=== PATIENT | male | born 1960 | race Caucasian/White ===

== ENCOUNTER 2018-02-23 05:22 | Emergency (ER) | payer BC ==
--- OUTSIDE RECORDS SUMMARY | 2018-02-23 05:24 | XMS REPORT | Clinical Summary ---
:1960 Author Organization [facility] Address [address] [place] [address] Care Team Providers Name Role Phone Bhavin Araiza MD Primary Care Provider Allergies No Known Allergies Current Medications Prescription Sig. Disp. Refills Start Date End Date Status benzonatate (TESSALON) TK ONE C PO TID PRF 0 03/28/2016 Active 100 MG capsule COUGH cefdinir (OMNICEF) 300 TK ONE C PO Q 12 H 0 03/28/2016 Active MG capsule DUEXIS 800-26.6 mg Take 1 tablet by 0 03/19/2016 Active tablet mouth 3 (three) times a day. NOREL AD 4-10-325 mg TK 1 T PO Q 6 H PRF 0 03/28/2016 Active tablet NASAL CONGESTION armodafinil 150 mg Take 150 mg by mouth. Active tablet azelastine-fluticasone into each nostril. Active (DYMISTA) 137-50 mcg/spray spray,non-aerosol esomeprazole (NexIUM) Take 40 mg by mouth. Active 40 MG capsule traMADol (ULTRAM) 50 mg Take 50 mg by mouth. 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 07/23/2015 Family History Medical History Relation Name Comments Cancer Mother JAW BONE Relation Name Status Comments Mother Social History Tobacco Use Types Packs/Day Years Used Date Former Smoker Quit: 1981 Alcohol Use Drinks/Week oz/Week Comments Yes 1 DRINK / MONTH Sex Assigned at Date Recorded Not on file Last Filed Vital Signs Not on file Plan of Treatment Health Maintenance Due Date Last Done Comments COLON CANCER SCREENING 2011 SHINGRIX VACCINE (#1) 2011 GASTROSCOPY (EGD) 07/28/2017 07/28/2016 INFLUENZA VACCINE 11/30/2017 Results Not on fileafter 02/22/2017 Insurance Payer Benefit Plan / Group Subscriber ID Type Phone Address BCBS BCBS CHOICE PPO/FEDERAL EMPL PPO xxxxxxxxxxxx PPO [phone] [place] [id number]
[2018-02-23] MEDS ORDERED: MAGNE/ALUM HYDROXD 30 ML UCUP ONE (05:47)
[2018-02-23] MEDS ORDERED: LIDOCAINE VISCOUS 2% SOLN 15 ML UDC ONE (05:48)
[2018-02-23] MEDS ORDERED: NITROGLYCERIN 0.4 MG/TAB SL ONE (05:48)
[2018-02-23 05:50] LABS: Absolute Monocytes 0.5 K/uL (0.1-1.3); Absolute Neutrophil 2.6 K/uL (1.8-8.0); Basophils % 0.6 % (0-1.3); Eosinophils % 7.5 % (0-4.4); Hematocrit 38.1 % (39.6-49.0); Lymphocytes % 35.3 % (15.3-44.8); MCH 30.5 pg (27.0-35.0); MCV 90.9 fL (80-100); Monocytes % 9.6 % (3.3-12.3); RBC Red Blood Cell Count 4.19 M/uL (4.33-5.43)
[2018-02-23 06:05] LABS: Protime INR 0.87
[2018-02-23 06:09] LABS: ALT/SGPT 28 U/L (12-78); AST/SGOT 20 U/L (15-37); Albumin 3.4 g/dL (3.4-5.0); Alkaline Phosphatase 65 U/L (45-117); BUN Blood Urea Nitrogen 18 mg/dL (7-18); Bicarbonate 27 mmol/L (21-32); Bilirubin Total 0.3 mg/dL (0.2-1.0); Glucose Level 84 mg/dL (74-106); Magnesium 2.3 mg/dL (1.8-2.4); NT PRO-BNP 22 pg/mL (<125); Potassium 4.1 mmol/L (3.5-5.1); Protein, Total 6.6 g/dL (6.4-8.2); Sodium Level 143 mmol/L (136-145); Troponin (Emerg Dept Use Only) < 0.02 ng/mL (0.0-0.045)
--- NOTE | 2018-02-23 08:48 | RAD REPORT ---
EXAM DESCRIPTION: RAD - Chest Single View - 02/23/2018 6:11 am CLINICAL HISTORY: CHEST PAIN Chest pain. COMPARISON: Chest Single View dated 10/26/2016; CHEST SINGLE VIEW dated 07/27/2013; ABDOMEN ACUTE SERI ES dated 03/09/2001 FINDINGS: Portable technique limits examination quality. The lungs are grossly clear. The heart is normal in size. No displaced fractures. IMPRESSION: No acute intrathoracic process suspected.
--- NOTE | 2018-02-23 09:08 | EDPHYS ---
Physician Documentation [facility] Name: Jose Antonio Olivarez Age: 57 yrs Sex: Male : 1960 Arrival Date: 02/23/2018 Time: 05:23 Bed 19 Private MD: ED Physician Rafi Jones HPI: 02/23 05:44 This 57 yrs old Male presents to ER via Ambulatory with complaints of Chest ps1 Pain - Discomfort, High Blood Pressure. 05:44 Onset was 4am upon awakening. Burning sensation. Had BP 160's and got worried. ps1 Discomfort is localized substernal and into throat. Pain rated as moderate. [place] like indigestion. No remitting factors. Pt of [place]. Last nuc stress a year ago. . Historical: - Allergies: 05:34 No Known Allergies; aa1 - Home Meds: 05:34 Nexium Oral [Active]; aa1 07:06 Clonidine 0.2mg twice a day [Active]; pantoprazole Oral [Active]; tw2 - PMHx: 05:34 GERD; Hypertension; Dao's Esophagitis; aa1 - PSHx: 05:34 None; aa1 - Immunization history:: Flu vaccine is not up to date. - Social history:: Smoking status: Patient/guardian denies using tobacco. - Ebola Screening: : No symptoms or risks identified at this time. ROS: 05:44 Constitutional: Negative for fever, chills, and weight loss, Eyes: Negative for injury, ps1 pain, redness, and discharge, Respiratory: Negative for shortness of breath, cough, wheezing, and pleuritic chest pain, Abdomen/GI: Negative for abdominal pain, nausea, vomiting, diarrhea, and constipation, Back: Negative for injury and pain, MS/Extremity: Negative for injury and deformity, Skin: Negative for injury, rash, and discoloration, Neuro: Negative for headache, weakness, numbness, tingling, and seizure, Psych: Negative for depression, anxiety, suicide ideation, homicidal ideation, and hallucinations. 05:44 Cardiovascular: Positive for chest pain, of the chest. Exam: 05:44 Constitutional: This is a well developed, well nourished patient who is awake, alert, ps1 and in no acute distress. Head/Face: Normocephalic, atraumatic. Eyes: Pupils equal round and reactive to light, extra-ocular motions intact. Lids and lashes normal. Conjunctiva and sclera are non-icteric and not injected. Chest/axilla: Normal chest wall appearance and motion. Nontender with no deformity. No lesions are appreciated. Respiratory: Lungs have equal breath sounds bilaterally, clear to auscultation and percussion. No rales, rhonchi or wheezes noted. No increased work of breathing, no retractions or nasal flaring. Abdomen/GI: Soft, non-tender, with normal bowel sounds. No distension or tympany. No guarding or rebound. No evidence of tenderness throughout. Skin: Warm, dry with normal turgor. Normal color with no rashes, no lesions, and no evidence of cellulitis. MS/ Extremity: Pulses equal, no cyanosis. Neurovascular intact. Full, normal range of motion. Neuro: Awake and alert, GCS 15, oriented to person, place, time, and situation. Cranial nerves II-XII grossly intact. Sensory grossly intact. Psych: Awake, alert, with orientation to person, place and time. Behavior, mood, and affect are within normal limits. 05:44 Cardiovascular: Rate: normal, Rhythm: regular, Pulses: no pulse deficits are appreciated. Vital Signs: 05:34 BP 163 / 108; Pulse 67; Resp 18; Temp 98.0; Pulse Ox 98% on R/A; Weight 79.38 kg; aa1 Height 5 ft. 7 in. (170.18 cm); Pain 6/10; 06:05 BP 131 / 91; Pulse 60; Resp 13; Pulse Ox 97% ; tl1 06:35 BP 144 / 103; Pulse 64; Resp 16; Pulse Ox 99% ; tl1 07:35 BP 149 / 94; Pulse 57; Resp 13; Pulse Ox 97% on R/A; tw2 08:59 BP 146 / 96; Pulse 53; Resp 17; Pulse Ox 99% on R/A; tw2 09:25 BP 156 / 94; Pulse 54; Resp 18; Temp 97.9; Pulse Ox 98% on R/A; ph 05:34 Body Mass Index 27.41 (79.38 kg, 170.18 cm) aa1 MDM: 05:47 Patient medically screened. ps1 09:06 Data reviewed: vital signs, nurses notes. Data interpreted: Pulse oximetry: on room air kb is 99 %. Interpretation: normal. Counseling: I had a detailed discussion with the patient and/or guardian regarding: the historical points, exam findings, and any diagnostic results supporting the discharge/admit diagnosis, lab results, radiology results, the need for outpatient follow up, a family practitioner, to return to the emergency department if symptoms worsen or persist or if there are any questions or concerns that arise at home. 02/23 05:28 Order name: CBC with Diff; Complete Time: 05:57 ps1 02/23 05:28 Order name: Magnesium; Complete Time: 06:12 ps1 02/23 05:28 Order name: NT PRO-BNP; Complete Time: 06:12 ps1 02/23 05:28 Order name: PT-INR; Complete Time: 06:12 02/23 05:28 Order name: Troponin (emerg Dept Use Only); Complete Time: 06:12 ps1 02/23 05:28 Order name: CMP; Complete Time: 06:12 ps1 02/23 05:28 Order name: XRAY Chest (1 view); Complete Time: 08:54 ps1 02/23 05:28 Order name: EKG; Complete Time: 05:29 ps1 02/23 05:28 Order name: Cardiac monitoring; Complete Time: 05:40 ps1 02/23 05:28 Order name: EKG - Nurse/Tech; Complete Time: 05:40 ps1 02/23 07:45 Order name: Troponin (emerg Dept Use Only); Complete Time: 09:05 tw2 02/23 07:45 Order name: EKG; Complete Time: 07:46 tw2 02/23 05:28 Order name: IV Saline Lock; Complete Time: 05:40 ps1 02/23 05:28 Order name: Labs collected and sent; Complete Time: 05:40 ps1 02/23 05:28 Order name: O2 Per Protocol; Complete Time: 05:40 ps1 02/23 05:28 Order name: O2 Sat Monitoring; Complete Time: 05: ps1 02/23 07:45 Order name: EKG - Nurse/Tech; Complete Time: 07:46 tw2 EC:35 Rate is 60 beats/min. Rhythm is regular. QRS [place] is Normal. [place] interval is normal. QRS ps1 interval is normal. QT interval is normal. No Q waves. T waves are Normal. No ST changes noted. Clinical impression: Normal ECG. Interpreted by me. Administered Medications: 05:44 Drug: GI Cocktail without - (Maalox Suspension 30 ml, Lidocaine Liquid 2 % 15 tl1 ml) Route: PO; 07:45 Follow up: Response: No adverse reaction tw2 05:44 Drug: Nitroglycerin 0.4 mg Route: Sublingual; tl1 07:45 Follow up: Response: No adverse reaction tw2 Disposition: 02/23/18 09:07 Discharged to Home. Impression: Chest pain, unspecified. - Condition is Stable. - Discharge Instructions: Nonspecific Chest Pain, [id number]. - Medication Reconciliation Form, Thank You Letter, Antibiotic Education, Prescription Opioid Use form. - Follow up: Emergency Department; When: As needed; Reason: Worsening of condition. Follow up: Private Physician; When: 2 - 3 days; Reason: Recheck today's complaints, Continuance of care, Re-evaluation by your physician. Addendum: 02/28/2018 09:48 Co-signature as Attending Physician, Rafi Jones MD available for consultation at p s1 all times . Signatures: Dispatcher [employer] EDMS Omaira Warren, CATCHER HELPER-C CATCHER HELPER-Ckb Mariella Amos RN RN aa1 Haily Lemus, RN RN tl1 Tania Strickland RN RN ph Sindy Patel, RN RN tw2 Rafi Jones MD MD ps1 Corrections: (The following items were deleted from the chart) 02/23 09:26 09:07 02/23/2018 09:07 Discharged to Home. Impression: Chest pain, unspecified. ph Condition is Stable. Forms are Medication Reconciliation Form, Thank You Letter, Antibiotic Education, Prescription Opioid Use. Follow up: Emergency Department; When: As needed; Reason: Worsening of condition. Follow up: Private Physician; When: 2 - 3 days; Reason: Recheck today's complaints, Continuance of care, Re-evaluation by your physician. kb
--- NOTE | 2018-02-23 09:08 | ER ---
Nurse's Notes [facility] Name: Jose Antonio Olivarez Age: 57 yrs Sex: Male : 1960 Arrival Date: 02/23/2018 Time: 05:23 Bed 19 Private MD: Diagnosis: Chest pain, unspecified Presentation: 02/23 05:32 Presenting complaint: Patient states: he woke up at 0430 this am with indigestion and aa1 burning in his chest that radiates to his throat. Reports taking Nexium and Rolaids with no relief. Transition of care: patient was not received from another setting of care. Onset of symptoms was February 23, 2018 at 04:30. Risk Assessment: Do you want to hurt yourself or someone else? Patient reports no desire to harm self or others. Initial Sepsis Screen: Does the patient meet any 2 criteria? No. Patient's initial sepsis screen is negative. Does the patient have a suspected source of infection? No. Patient's initial sepsis screen is negative. Care prior to arrival: None. 05:32 Method Of Arrival: Ambulatory aa1 05:32 Acuity: VAUGHN 3 aa1 Historical: - Allergies: 05:34 No Known Allergies; aa1 - Home Meds: 05:34 Nexium Oral [Active]; aa1 07:06 Clonidine 0.2mg twice a day [Active]; pantoprazole Oral [Active]; tw2 - PMHx: 05:34 GERD; Hypertension; Dao's Esophagitis; aa1 - PSHx: 05:34 None; aa1 - Immunization history:: Flu vaccine is not up to date. - Social history:: Smoking status: Patient/guardian denies using tobacco. - Ebola Screening: : No symptoms or risks identified at this time. Screenin:37 Abuse screen: Denies threats or abuse. Denies injuries from another. Nutritional aa1 screening: No deficits noted. Tuberculosis screening: No symptoms or risk factors identified. Fall Risk None identified. Assessment: 05:45 General: Appears in no apparent distress. Behavior is calm, cooperative, appropriate tl1 for age. Pain: Complains of pain in mid-sternal area Pain radiates to neck Pain began gradually. Neuro: Level of Consciousness is awake, alert, obeys commands, Oriented to person, place, time, situation. Cardiovascular: Reports chest pain, Capillary refill < 3 seconds Patient's skin is warm and dry. Rhythm is regular Chest pain quality is burning. Respiratory: Airway is patent Trachea midline Respiratory effort is even, unlabored, Respiratory pattern is regular, symmetrical, Breath sounds are clear bilaterally. GI: Bowel sounds present X 4 quads. Abd is soft and non tender X 4 quads. Patient currently denies abdominal pain. : No deficits noted. 06:36 Reassessment: Patient and/or family updated on plan of care and expected duration. Pain tl1 level reassessed. Patient is alert, oriented x 3, equal unlabored respirations, skin warm/dry/pink. Patient states feeling better. Patient states symptoms have improved. 07:35 Reassessment: Patient appears in no apparent distress at this time. Patient and/or tw2 family updated on plan of care and expected duration. Pain level reassessed. Patient is alert, oriented x 3, equal unlabored respirations, skin warm/dry/pink. 08:59 Reassessment: Patient appears in no apparent distress at this time. Patient and/or tw2 family updated on plan of care and expected duration. Pain level reassessed. Patient is alert, oriented x 3, equal unlabored respirations, skin warm/dry/pink. 09:24 Reassessment: Patient appears in no apparent distress at this time. Patient and/or ph family updated on plan of care and expected duration. Pain level reassessed. Patient is alert, oriented x 3, equal unlabored respirations, skin warm/dry/pink. Pt instructed to follow up w/ PCP and d/c home w/ SO. Vital Signs: 05:34 BP 163 / 108; Pulse 67; Resp 18; Temp 98.0; Pulse Ox 98% on R/A; Weight 79.38 kg; aa1 Height 5 ft. 7 in. (170.18 cm); Pain 6/10; 06:05 BP 131 / 91; Pulse 60; Resp 13; Pulse Ox 97% ; tl1 06:35 BP 144 / 103; Pulse 64; Resp 16; Pulse Ox 99% ; tl1 07:35 BP 149 / 94; Pulse 57; Resp 13; Pulse Ox 97% on R/A; tw2 08:59 BP 146 / 96; Pulse 53; Resp 17; Pulse Ox 99% on R/A; tw2 09:25 BP 156 / 94; Pulse 54; Resp 18; Temp 97.9; Pulse Ox 98% on R/A; ph 05:34 Body Mass Index 27.41 (79.38 kg, 170.18 cm) aa1 ED Course: 05:23 Patient arrived in ED. ds1 05:28 Rafi Jones MD is Attending Physician. ps1 05:33 Triage completed. aa1 05:34 Arm band placed on right wrist. aa1 05:37 Patient has correct armband on for positive identification. Bed in low position. Call aa1 light in reach. laborer tanbark on. Pulse ox on. NIBP on. 05:37 Patient maintains SpO2 saturation greater than 95% on room air. aa1 05:40 Inserted saline lock: 20 gauge in right antecubital area, using aseptic technique. tl1 Blood collected. 05:59 Haily Lemus RN is Primary Nurse. tl1 06:10 X-ray completed. Portable x-ray completed in exam room. Patient tolerated procedure kw well. 06:11 XRAY Chest (1 view) In Process Unspecified. EDMS 06:56 Omaira Warren F[facility]-C [facility] kb 07:07 Primary Nurse role handed off by Haily Lemus RN tw2 07:07 Sindy Patel RN is Primary Nurse. tw2 08:30 EKG done, by cv tech. reviewed by Omaira CLAROS Repeat EKG. at1 08:59 No provider procedures requiring assistance completed. tw2 09:26 IV discontinued, intact, bleeding controlled, No redness/swelling at site. Pressure ph dressing applied. Administered Medications: 05:44 Drug: GI Cocktail without - (Maalox Suspension 30 ml, Lidocaine Liquid 2 % 15 tl1 ml) Route: PO; 07:45 Follow up: Response: No adverse reaction tw2 05:44 Drug: Nitroglycerin 0.4 mg Route: Sublingual; tl1 07:45 Follow up: Response: No adverse reaction tw2 Outcome: 09:07 Discharge ordered by . kb 09:26 Discharged to home ambulatory, with significant other. ph 09:26 Condition: good 09:26 Discharge instructions given to patient, Instructed on discharge instructions, follow up and referral plans. Demonstrated understanding of instructions, follow-up care. 09:26 Patient left the ED. ph Signatures: Dispatcher [employer] EDMS Omaira Warren FNP-C WOOL CARDER-Ckb Mariella Amos, RN RN aa1 Charlie, Pat ds1 Christine Walls Amanda, blueprint cutter EK Tat1 Haily Lemus, RN RN tl1 Tania Strickland, RN RN ph Sindy Patel, RN RN tw2 Rafi Jones MD MD ps1
[2018-02-23 09:40] VITALS: BP 156/94; TEMP 97.9; O2SAT 98
--- NOTE | 2018-02-24 07:31 | EKG ---
Test Date: 2018-02-23 Test Time: 08:29:57 Wood Machine Carver: LEIGH ANN MEASUREMENT RESULTS: Intervals: Rate: 54 VT: 160 QRSD: 96 QT: 428 QTc: 405 [place]: P: 59 VT: 160 QRS: 59 T: 61 INTERPRETIVE STATEMENTS: Sinus bradycardia Otherwise normal ECG Compared to ECG 02/23/2018 05:35:00 Sinus rhythm no longer present Electronically Signed On 02-24-18 07:28:03 CDT by Jason Moore
--- NOTE | 2018-02-24 07:32 | EKG ---
Test Date: 2018-02-23 Test Time: 05:35:00 Airline Radio Operator: ROBERT MEASUREMENT RESULTS: Intervals: Rate: 60 SD: 156 QRSD: 96 QT: 414 QTc: 414 [place]: P: 51 SD: 156 QRS: 36 T: 54 INTERPRETIVE STATEMENTS: Normal sinus rhythm Normal ECG Compared to ECG 10/27/2016 23:28:21 Sinus bradycardia no longer present Electronically Signed On 02-24-18 07:28:09 CDT by Jason Moore
== END 2018-02-23 09:26 | disposition home or self-care (01) ==
LOC: ER 05:22
DX: R07.9 Chest pain, unspecified (principal); I10 Essential (primary) hypertension; K21.9 Gastro-esophageal reflux disease without esophagitis
CPT/HCPCS: 36415; 71045; 80053; 83735; 83880; 84484; 85025; 85610; 93005; 99285

== ENCOUNTER 2018-04-23 00:27 | Emergency (ER) | payer BC ==
--- OUTSIDE RECORDS SUMMARY | 2018-04-23 00:29 | XMS REPORT | Clinical Summary ---
:1960 Author Organization [facility] Address [address] [place] [address] Care Team Providers Name Role Phone Bhavin Araiza MD Primary Care Provider Allergies No Known Allergies Medications Medication Sig Dispensed Refills Start Date End Date Status benzonatate TK ONE C PO TID PRF 0 03/28/2016 Active (TESSALON) 100 MG COUGH capsule cefdinir (OMNICEF) TK ONE C PO Q 12 H 0 03/28/2016 Active 300 MG capsule DUEXIS 800-26.6 mg Take 1 tablet by 0 03/19/2016 Active tablet mouth 3 (three) times a day. NOREL AD 4-10-325 mg TK 1 T PO Q 6 H 0 03/28/2016 Active tablet PRF NASAL CONGESTION armodafinil 150 mg Take 150 mg by 0 Active tablet mouth. azelastine-fluticason into each nostril. 0 Active e (DYMISTA) 137-50 mcg/spray spray,non-aerosol esomeprazole (NexIUM) Take 40 mg by 0 Active 40 MG capsule mouth. traMADol (ULTRAM) 50 Take 50 mg by 0 07/23/2015 Active mg tablet mouth. Active Problems Problem Noted Date Neurogenic claudication [...] Assigned at Date Recorded Not on file Job Start Date Occupation Industry Not on file Not on file Not on file Travel History Travel Start Travel End No recent travel history available. Last Filed Vital Signs Not on file Plan of Treatment Health Maintenance Due Date Last Done Comments COLON CANCER SCREENING 2011 SHINGLES VACCINES (1 of 2) 2011 GASTROSCOPY (EGD) 07/28/2017 07/28/2016 INFLUENZA VACCINE 11/30/2017 Results Not on fileafter 04/22/2017 Insurance Payer Benefit Plan / Group Subscriber ID Type Phone Address BCBS BCBS CHOICE PPO/FEDERAL EMPL PPO xxxxxxxxxxxx PPO Advance Directives Patient has advance care planning documents on file. For more information, please contact:Atilio Healy[address] [place] [address]
[2018-04-23 02:07] LABS: Urine Blood NEGATIVE (NEG); Urine Glucose NEGATIVE (NEG); Urine Protein NEGATIVE (NEG); Urine pH 5.5 (5.0-7.0)
[2018-04-23] MEDS ORDERED: DEXAMETHASONE 10 MG/ML VIAL ONE (02:10)
[2018-04-23] MEDS ORDERED: DIAZEPAM 5 MG TABLET ONE (02:10)
[2018-04-23] MEDS ORDERED: NA CHLORIDE 0.9% 500 ML ONE (02:11)
[2018-04-23] MEDS ORDERED: MORPHINE 4 MG/ML SYR ONE (02:11)
[2018-04-23] MEDS ORDERED: KETOROLAC 30 MG/ML INJ ONE (02:11)
[2018-04-23] MEDS ORDERED: ONDANSETRON 4 MG/2 ML VIAL ONE (02:11)
[2018-04-23 02:24] LABS: Absolute Lymphocytes (CBC) 2.3 K/uL (0.7-4.9); Absolute Monocytes 0.6 K/uL (0.1-1.3); Absolute Neutrophil 3.4 K/uL (1.8-8.0); Basophils % 0.9 % (0-1.3); Eosinophils % 8.1 % (0-4.4); Hematocrit 36.3 % (39.6-49.0); MPV 7.8 fL (7.6-11.3); Monocytes % 8.5 % (3.3-12.3); RBC Red Blood Cell Count 3.97 M/uL (4.33-5.43)
[2018-04-23 02:42] LABS: Albumin 3.6 g/dL (3.4-5.0); Bilirubin Total 0.4 mg/dL (0.2-1.0); Potassium 3.8 mmol/L (3.5-5.1); Protein, Total 6.6 g/dL (6.4-8.2)
--- NOTE | 2018-04-23 02:50 | ER ---
Nurse's Notes [facility] Name: Jose Antonio Olivarez Age: 58 yrs Sex: Male : 1960 Arrival Date: 04/23/2018 Time: 00:27 Bed 25 Private MD: Bhavin Araiza Diagnosis: Low back pain;Sciatica Presentation: 04/23 00:59 Presenting complaint: Patient states: Back pain that started this afternoon, left flank tl3 pain, no hx of kidney stones. Transition of care: patient was not received from another setting of care. Onset of symptoms was April 23, 2018. Risk Assessment: Do you want to hurt yourself or someone else? Patient reports no desire to harm self or others. Initial Sepsis Screen: Does the patient meet any 2 criteria? No. Patient's initial sepsis screen is negative. Does the patient have a suspected source of infection? No. Patient's initial sepsis screen is negative. Care prior to arrival: None. 00:59 Method Of Arrival: Ambulatory tl3 00:59 Acuity: VAUGHN 3 tl3 Triage Assessment: 01:02 General: Appears uncomfortable, slender, well groomed, well developed, well nourished, tl3 Behavior is calm, cooperative, appropriate for age. Pain: Complains of pain in left low back and left mid back Pain currently is 9 out of 10 on a pain scale. Musculoskeletal: Reports pain in left flank area. Historical: - Allergies: 01:02 No Known Allergies; tl3 - Home Meds: 01:02 losartan 50 mg oral tab 1 tab once daily [Active]; pantoprazole Oral [Active]; tl3 - PMHx: 01:02 Dao's Esophagitis; GERD; Hypertension; tl3 - Immunization history:: Adult Immunizations up to date. - Social history:: Smoking status: Patient/guardian denies using tobacco, never smoked. - Ebola Screening: : No symptoms or risks identified at this time. - Family history:: not pertinent. Screenin:36 Abuse screen: Denies threats or abuse. Denies injuries from another. Nutritional mg2 screening: No deficits noted. Tuberculosis screening: No symptoms or risk factors identified. Fall Risk None identified. Assessment: 01:35 General: Appears in no apparent distress. comfortable, Behavior is calm, cooperative. mg2 Pain: Complains of pain in back and left mid back and left low back Pain does not radiate. Pain currently is 6 out of 10 on a pain scale. Quality of pain is described as aching, Pain began gradually, today evening Is intermittent. Neuro: Level of Consciousness is awake, alert, obeys commands, Oriented to person, place, time, situation. Cardiovascular: Capillary refill < 3 seconds Patient's skin is warm and dry. Respiratory: Airway is patent Respiratory effort is even, unlabored, Respiratory pattern is regular, symmetrical. GI: No signs and/or symptoms were reported involving the gastrointestinal system. : No signs and/or symptoms were reported regarding the genitourinary system. EENT: No signs and/or symptoms were reported regarding the EENT system. Derm: Skin is intact, is healthy with good turgor, Skin is pink, warm \T\ dry. normal. Musculoskeletal: Circulation, motion, and sensation intact. Capillary refill < 3 seconds, Reports pain in back and left mid back and left low back. Vital Signs: 01:02 BP 127 / 86; Pulse 62; Resp 18; Temp 97.6; Pulse Ox 100% ; Weight 79.38 kg; Height 5 tl3 ft. 7 in. (170.18 cm); 02:38 BP 123 / 86; Pulse 60; Resp 18; Pulse Ox 100% on R/A; Pain 5/10; mg2 03:11 BP 132 / 90; Pulse 63; Resp 18; Pulse Ox 97% ; Pain 0/10; fu 01:02 Body Mass Index 27.41 (79.38 kg, 170.18 cm) tl3 ED Course: 00:27 Patient arrived in ED. as 00:27 Bhavin Araiza MD is Private Physician. as 01:01 Triage completed. tl3 01:02 Arm band placed on right wrist. tl3 01:24 Daniel Palencia MD is Attending Physician. jayden 01:35 Shayne Walters, AMADO is Primary Nurse. mg2 01:36 No provider procedures requiring assistance completed. mg2 01:37 Patient has correct armband on for positive identification. mg2 02:10 Inserted saline lock: 22 gauge in right antecubital area, using aseptic technique. mg2 Blood collected. 02:34 CT Lumbar Spine Wo Con In Process Unspecified. EDMS 02:49 Bhavin Araiza MD is Referral Physician. jayden 02:49 Phillip Nevarez MD is Referral Physician. jayden 03:43 IV discontinued, bleeding controlled. fu Administered Medications: 02:14 Drug: Decadron - Dexamethasone 10 mg Route: IVP; Site: left antecubital; fu 02:15 Drug: TORadol 30 mg Route: IVP; Site: right antecubital; mg2 02:15 Drug: Valium 5 mg Route: PO; mg2 02:15 Drug: NS 0.9% 500 ml Route: IV; Rate: bolus; Site: right antecubital; mg2 02:55 Drug: Zofran 4 mg Route: IVP; Site: right antecubital; fu 02:58 Drug: morphine 4 mg Route: IVP; Site: right antecubital; fu 04:11 Drug: [place] 10 mg-325 mg 1 tabs Route: PO; fu Outcome: 02:49 Discharge ordered by . jayden 03:44 Discharge instructions given to patient, family, Instructed on discharge instructions, fu follow up and referral plans. medication usage, Demonstrated understanding of instructions, follow-up care, medications, Prescriptions given X 4. 04:12 Discharged to home ambulatory, with fu 04:12 Condition: improved 04:18 Patient left the ED. fu Signatures: Dispatcher [employer] EDMS Daniel Palencia MD MD cha Martinez, Amelia as Umadhay, Felix RN Moriah Jimenes RN RN tl3 Shayne Walters RN RN mg2 Corrections: (The following items were deleted from the chart) 02:11 01:36 Patient did not have IV access during this emergency room visit. mg2 mg2
--- NOTE | 2018-04-23 02:50 | EDPHYS ---
Physician Documentation [facility] Name: Jose Antonio Olivarez Age: 58 yrs Sex: Male : 1960 Arrival Date: 04/23/2018 Time: 00:27 Bed 25 Private MD: Bhavin Araiza ED Physician Daniel Palencia HPI: 04/23 01:56 This 58 yrs old Male presents to ER via Ambulatory with complaints of Back jayden Pain. 01:56 The patient presents with pain that is acute. The symptoms are located in the low back. jayden Onset: The symptoms/episode began/occurred 2 day(s) ago. The pain does not radiate. Associated signs and symptoms: The patient has no apparent associated signs or symptoms. The problem was sustained when bending over, when lifting. Modifying factors: The patient symptoms are alleviated by remaining still, the patient symptoms are aggravated by bending, coughing, movement, standing. Severity of symptoms: At their worst the symptoms were mild, in the emergency department the symptoms are unchanged. The patient has not experienced similar symptoms in the past. Historical: - Allergies: 01:02 No Known Allergies; tl3 - Home Meds: 01:02 losartan 50 mg oral tab 1 tab once daily [Active]; pantoprazole Oral [Active]; tl3 - PMHx: 01:02 Dao's Esophagitis; GERD; Hypertension; tl3 - Immunization history:: Adult Immunizations up to date. - Social history:: Smoking status: Patient/guardian denies using tobacco, never smoked. - Ebola Screening: : No symptoms or risks identified at this time. - Family history:: not pertinent. ROS: 01:56 Constitutional: Negative for fever, chills, and weight loss, Eyes: Negative for injury, jayden pain, redness, and discharge, ENT: Negative for injury, pain, and discharge, Neck: Negative for injury, pain, and swelling, Cardiovascular: Negative for chest pain, palpitations, and edema, Respiratory: Negative for shortness of breath, cough, wheezing, and pleuritic chest pain, Abdomen/GI: Negative for abdominal pain, nausea, vomiting, diarrhea, and constipation, : Negative for injury, bleeding, discharge, and swelling, MS/Extremity: Negative for injury and deformity, Skin: Negative for injury, rash, and discoloration, Neuro: Negative for headache, weakness, numbness, tingling, and seizure, Psych: Negative for depression, anxiety, suicide ideation, homicidal ideation, and hallucinations, Allergy/Immunology: Negative for hives, rash, and allergies, Endocrine: Negative for neck swelling, polydipsia, polyuria, polyphagia, and marked weight changes. 01:56 Back: Positive for decreased range of motion, pain at rest, pain with movement, of the lumbar area. Exam: 01:56 Constitutional: This is a well developed, well nourished patient who is awake, alert, jayden and in no acute distress. Head/Face: Normocephalic, atraumatic. Eyes: Pupils equal round and reactive to light, extra-ocular motions intact. Lids and lashes normal. Conjunctiva and sclera are non-icteric and not injected. Cornea within normal limits. Periorbital areas with no swelling, redness, or edema. ENT: Nares patent. No nasal discharge, no septal abnormalities noted. Tympanic membranes are normal and external auditory canals are clear. Oropharynx with no redness, swelling, or masses, exudates, or evidence of obstruction, uvula midline. Mucous membranes moist. Neck: Trachea midline, no thyromegaly or masses palpated, and no cervical lymphadenopathy. Supple, full range of motion without nuchal rigidity, or vertebral point tenderness. No Meningismus. Chest/axilla: Normal chest wall appearance and motion. Nontender with no deformity. No lesions are appreciated. Cardiovascular: Regular rate and rhythm with a normal S1 and S2. No gallops, murmurs, or rubs. Normal PMI, no JVD. No pulse deficits. Respiratory: Lungs have equal breath sounds bilaterally, clear to auscultation and percussion. No rales, rhonchi or wheezes noted. No increased work of breathing, no retractions or nasal flaring. Abdomen/GI: Soft, non-tender, with normal bowel sounds. No distension or tympany. No guarding or rebound. No evidence of tenderness throughout. Male : Normal genitalia with no discharge or lesions. Skin: Warm, dry with normal turgor. Normal color with no rashes, no lesions, and no evidence of cellulitis. MS/ Extremity: Pulses equal, no cyanosis. Neurovascular intact. Full, normal range of motion. Neuro: Awake and alert, GCS 15, oriented to person, place, time, and situation. Cranial nerves II-XII grossly intact. Motor strength 5/5 in all extremities. Sensory grossly intact. Cerebellar exam normal. Normal gait. Psych: Awake, alert, with orientation to person, place and time. Behavior, mood, and affect are within normal limits. 01:56 Back: pain, that is mild, that is moderate, ROM is painful, normal spinal alignment noted, CVA tenderness, is absent, vertebral tenderness, is not appreciated, muscle spasm, is appreciated in the left low back, left mid back, right mid back and right low back. Vital Signs: 01:02 BP 127 / 86; Pulse 62; Resp 18; Temp 97.6; Pulse Ox 100% ; Weight 79.38 kg; Height 5 tl3 ft. 7 in. (170.18 cm); 02:38 BP 123 / 86; Pulse 60; Resp 18; Pulse Ox 100% on R/A; Pain 5/10; mg2 03:11 BP 132 / 90; Pulse 63; Resp 18; Pulse Ox 97% ; Pain 0/10; fu 01:02 Body Mass Index 27.41 (79.38 kg, 170.18 cm) tl3 MDM: 01:25 Patient medically screened. [facility] 01:56 Data reviewed: vital signs, nurses notes, lab test result(s), radiologic studies. [facility] 04/23 01:17 Order name: Urine Dipstick--Ancillary (enter results); Complete Time: 02:47 04/23 01:56 Order name: CBC with Diff; Complete Time: 02:47 [facility] 04/23 01:56 Order name: Comprehensive Metabolic Panel; Complete Time: 02:47 [facility] 04/23 01:56 Order name: CT Lumbar Spine Wo Con [facility] 04/23 01:56 Order name: Urine Culture [facility] Administered Medications: 02:14 Drug: Decadron - Dexamethasone 10 mg Route: IVP; Site: left antecubital; fu 02:15 Drug: TORadol 30 mg Route: IVP; Site: right antecubital; mg2 02:15 Drug: Valium 5 mg Route: PO; mg2 02:15 Drug: NS 0.9% 500 ml Route: IV; Rate: bolus; Site: right antecubital; mg2 02:55 Drug: Zofran 4 mg Route: IVP; Site: right antecubital; fu 02:58 Drug: morphine 4 mg Route: IVP; Site: right antecubital; fu 04:11 Drug: Capron 10 mg-325 mg 1 tabs Route: PO; fu Disposition: 04/23/18 02:49 Discharged to Home. Impression: Low back pain, Sciatica. - Condition is Stable. - Discharge Instructions: Back Pain, Adult, Chronic Back Pain, Musculoskeletal Pain, Back Injury Prevention, [id number], Back Pain, Adult, Uetl-pd-Waow, Radicular Pain. - Prescriptions for Skelaxin 800 mg Oral Tablet - take 1 tablet by ORAL route every 6 hours As needed; 28 tablet. Tylenol- Codeine #3 300-30 mg Oral Tablet - take 2 tablet by ORAL route every 6 hours As needed; 30 tablet. Medrol (Zack) 4 mg Oral Tablets, Dose Pack - take 1 tablet by ORAL route as directed - follow package instructions; 1 packet. Motrin IB 200 mg Oral Tablet - take 2 tablet by ORAL route every 6 hours As needed as needed with food; 30 tablet. - Medication Reconciliation Form, Thank You Letter, Antibiotic Education, Prescription Opioid Use form. - Follow up: Bhavin Araiza; When: 2 - 3 days; Reason: Recheck today's complaints, Continuance of care, Re-evaluation by your physician. Follow up: Phillip Nevarez; When: 2 - 3 days; Reason: Recheck today's complaints, Continuance of care, Re-evaluation by your physician. - Problem is new. - Symptoms have improved. Signatures: Dispatcher [employer] Daniel Capps MD MD cha Umadhay, Felix, RN RN fu Lowrey, Tammy, RN RN tl3 Shayne Walters RN RN mg2 Corrections: (The following items were deleted from the chart) 04: 02:49 04/23/2018 02:49 Discharged to Home. Impression: Low back pain; Sciatica. fu Condition is Stable. Discharge Instructions: Back Pain, Adult, Chronic Back Pain, Musculoskeletal Pain, Back Injury Prevention, Cwql-ip-Ytqm, Back Pain, Adult, Tymc-af-Teqz, Radicular Pain. Prescriptions for Skelaxin 800 mg Oral Tablet - take 1 tablet by ORAL route every 6 hours As needed; 28 tablet, Tylenol-Codeine #3 300-30 mg Oral Tablet - take 2 tablet by ORAL route every 6 hours As needed; 30 tablet, Medrol (Zack) 4 mg Oral Tablets, Dose Pack - take 1 tablet by ORAL route as directed - follow package instructions; 1 packet, Motrin IB 200 mg Oral Tablet - take 2 tablet by ORAL route every 6 hours As needed as needed with food; 30 tablet. and Forms are Medication Reconciliation Form, Thank You Letter, Antibiotic Education, Prescription Opioid Use. Follow up: Bhavin Araiza; When: 2 - 3 days; Reason: Recheck today's complaints, Continuance of care, Re-evaluation by your physician. Follow up: Phillip Nevarez; When: 2 - 3 days; Reason: Recheck today's complaints, Continuance of care, Re-evaluation by your physician. Problem is new. Symptoms have improved. jayden
[2018-04-23] MEDS ORDERED: HYDROCODONE/APAP 10/325 TAB ONE (04:18)
[2018-04-23 10:07] VITALS: TEMP 97.6
[2018-04-23 10:11] VITALS: BP 132/90; O2SAT 97
--- NOTE | 2018-04-23 12:51 | RAD REPORT ---
EXAM DESCRIPTION: CT - Spine Lumbar Wo Con - 04/23/2018 3:24 am CLINICAL HISTORY: Radiculopathy. PAIN COMPARISON: No comparisons TECHNIQUE: Axial noncontrast CT imaging of the lumbar spine was performed with coronal and sagittal re-formatted images. All CT scans are performed using dose optimization technique as appropriate and may include automated exposure control or mA/KV adjustment according to patient size. FINDINGS: No acute lumbar spine fracture seen. No aggressive marrow pattern or malalignment. Paraspinal tissues are normal in thickness. No paraspinal abscess or hematoma seen. Mild spondylosis of the lower lumbar spine in the form of facet hypertrophy seen. Within the limitati ons of CT, no high-grade canal stenosis suspected. IMPRESSION: No acute lumbar spine finding. Consider MRI follow-up for assessment of disc disease if clinically desired.
== END 2018-04-23 04:18 | disposition home or self-care (01) ==
LOC: ER 00:27
DX: M54.40 Lumbago with sciatica, unspecified side (principal); I10 Essential (primary) hypertension; K21.9 Gastro-esophageal reflux disease without esophagitis; Z79.899 Other long term (current) drug therapy
CPT/HCPCS: 36415; 72131; 80053; 81003; 85025; 87086; 87088; 99284; J1100; J2405

== ENCOUNTER 2018-09-03 21:11 | Emergency (ER) | payer BC ==
--- OUTSIDE RECORDS SUMMARY | 2018-09-03 21:14 | XMS REPORT ---
:1960 [facility] Address [address] [place] [address] Dr. Jarvis[address] [place] [id number] Care Team Providers Name Role Phone DR CARLOS JIMENEZ Unavailable Unavailable Problems This patient has no known problems. Allergies, Adverse Reactions, Alerts This patient has no known allergies or adverse reactions. Medications This patient has no known medications. Encounters Start End Encounter Admission Attending Care Care Encounter Date/Time Date/Time Type Type Clinicians Facility Department ID 2018-06-16 2018-06-16 Outpatient C VASU JIMENEZ [facility] [place] [id number] 09:30:00 13:00:00 CARLOS
--- OUTSIDE RECORDS SUMMARY | 2018-09-03 21:14 | XMS REPORT | Clinical Summary ---
:1960 Author Organization [facility] Address [address] [place] [address] Care Team Providers Name Role Phone Bhavin [...] Comments COLON CANCER SCREENING 2011 SHINGLES VACCINES (#1) 2011 GASTROSCOPY (EGD) 07/28/2017 07/28/2016 INFLUENZA VACCINE 11/30/2018 Results Not on fileafter 09/02/2017 Insurance Payer Benefit Plan / Group Subscriber ID Type Phone Address BCBS BCBS CHOICE PPO/FEDERAL EMPL PPO xxxxxxxxxxxx PPO Advance Directives Patient has advance care planning documents on file. For more information, please contact:Atilio Healy[address] [place] [address]
[2018-09-03] MEDS ORDERED: HYDROCODONE/APAP 10/325 TAB ONE (21:56)
--- NOTE | 2018-09-03 23:33 | EDPHYS ---
Physician Documentation [facility] Name: Jose Antonio Olivarez Age: 58 yrs Sex: Male : 1960 Arrival Date: 09/03/2018 Time: 21:15 Bed 13 Private MD: Bhavin Araiza ED Physician Clifton Santana HPI: 09/03 21:35 This 58 yrs old Male presents to ER via Ambulatory with complaints of Fall rn Injury, Head Injury-Adult. 21:35 Details of fall: The patient fell from an upright position. rn 21:36 Onset: The symptoms/episode began/occurred just prior to arrival. Associated injuries: rn The patient sustained injury to the head. Severity of symptoms: At their worst the symptoms were mild, in the emergency department the symptoms are unchanged. The patient has not experienced similar symptoms in the past. REports dog took him out, flipped, hit head on post, no LOC, no vomiting, no seizure, no blood thinners, remembers all events. . Historical: - Allergies: 21:23 No Known Allergies; aj1 - Home Meds: 21:23 Nexium Oral [Active]; blood pressure medicine [Active]; aj1 - PMHx: 21:23 Dao's Esophagitis; GERD; Hypertension; aj1 - Immunization history: Last tetanus immunization: - up to date. - Social history:: Smoking status: Patient/guardian denies using tobacco. - Ebola Screening: : Patient denies travel to an Ebola-affected area in the 21 days before illness onset. - Family history:: not pertinent. - Hospitalizations: : No recent hospitalization is reported. ROS: 21:36 Constitutional: Negative for fever, chills, and weight loss, Eyes: Negative for injury, rn pain, redness, and discharge, Neck: Negative for injury, pain, and swelling, Cardiovascular: Negative for chest pain, palpitations, and edema, Respiratory: Negative for shortness of breath, cough, wheezing, and pleuritic chest pain, Abdomen/GI: Negative for abdominal pain, nausea, vomiting, diarrhea, and constipation, Back: Negative for injury and pain, MS/Extremity: Negative for injury and deformity, Neuro: Negative for headache, weakness, numbness, tingling, and seizure. Exam: 21:36 Constitutional: This is a well developed, well nourished patient who is awake, alert, rn and in no acute distress. Head/Face: Normocephalic, 2 separate scalp wounds, each 2cm, opens up a little with pressure, no active bleeding, no depression Eyes: Pupils equal round and reactive to light, extra-ocular motions intact. Lids and lashes normal. Conjunctiva and sclera are non-icteric and not injected. Cornea within normal limits. Periorbital areas with no swelling, redness, or edema. ENT: no oral trauma Neck: Trachea midline, no thyromegaly or masses palpated, and no cervical lymphadenopathy. Supple, full range of motion without nuchal rigidity, or vertebral point tenderness. No Meningismus. Back: No spinal tenderness. No costovertebral tenderness. Full range of motion. MS/ Extremity: Pulses equal, no cyanosis. Neurovascular intact. Full, normal range of motion. Equal circumference. Neuro: Awake and alert, GCS 15, oriented to person, place, time, and situation. Cranial nerves II-XII grossly intact. Motor strength 5/5 in all extremities. Sensory grossly intact. Cerebellar exam normal. Vital Signs: 21:16 BP 155 / 96; Pulse 80; Resp 18; Temp 98.3(O); Pulse Ox 99% on R/A; Weight 77.11 kg (R); aj1 Height 5 ft. 7 in. (170.18 cm) (R); 22:15 BP 145 / 80; Pulse 80; Resp 18; Pulse Ox 99% on R/A; ea 23:46 BP 130 / 87; Pulse 77; Resp 18; Temp 98.7; Pulse Ox 99% ; ea 21:16 Body Mass Index 26.63 (77.11 kg, 170.18 cm) aj1 Leon Coma Score: 21:16 Eye Response: spontaneous(4). Verbal Response: oriented(5). Motor Response: obeys aj1 commands(6). Total: 15. 22:15 Eye Response: spontaneous(4). Verbal Response: oriented(5). Motor Response: obeys ea commands(6). Total: 15. 23:46 Eye Response: spontaneous(4). Verbal Response: oriented(5). Motor Response: obeys ea commands(6). Total: 15. Trauma Score (Adult): 21:16 Eye Response: spontaneous(1); Verbal Response: oriented(1); Motor Response: obeys aj1 commands(2); Systolic BP: > 89 mm Hg(4); Respiratory Rate: 10 to 29 per min(4); Gavi Score: 15; Trauma Score: 12 Laceration: 23:29 Wound Repair of 3cm ( 1.2in ) subcutaneous laceration to scalp. Distal rn neuro/vascular/tendon intact. Wound prep: Extensive cleansing by nurse, Particulate matter removal of dirt by nurse. Skin closed with 3 1-0 Ernie using staple gun. Dressed with Neosporin, 4x4's. Patient tolerated well. 23:29 Wound Repair of 3cm ( 1.2in ) subcutaneous laceration to scalp. Distal rn neuro/vascular/tendon intact. Wound prep: Extensive cleansing by nurse, Wound irrigation by nurse, Particulate matter removal of dirt by nurse. Skin closed with 3 1-0 Ernie using staple gun. Dressed with Neosporin, 4x4's. Patient tolerated well. MDM: 21:25 Patient medically screened. rn 23:29 Differential diagnosis: abrasion, closed head injury, laceration. Data reviewed: vital rn signs, nurses notes, and as a result, I will discharge patient. Counseling: I had a detailed discussion with the patient and/or guardian regarding: the historical points, exam findings, and any diagnostic results supporting the discharge/admit diagnosis, the need for outpatient follow up, to return to the emergency department if symptoms worsen or persist or if there are any questions or concerns that arise at home. Special discussion: I discussed with the patient/guardian in detail that at this point there is no indication for admission to the hospital. It is understood, however, that if the symptoms persist or worsen the patient needs to return immediately for re-evaluation. ED course: Normal neuro exam, observed for 2.5 hours, lacerations stapled, will dc home with return precautions.. 09/03 21:35 Order name: Wound Care; Complete Time: 22:37 rn Administered Medications: 21:46 Drug: [place] 10 mg-325 mg 1 tabs Route: PO; ea 22:37 Follow up: Response: No adverse reaction; Pain is decreased ea Disposition: 09/03/18 23:31 Discharged to Home. Impression: Laceration without foreign body of scalp, Superficial injury of head. - Condition is Stable. - Discharge Instructions: Head Injury, Adult, Laceration Care, Adult, Stitches, Ernie, or Adhesive Wound Closure. - Prescriptions for Tylenol- Codeine #3 300-30 mg Oral Tablet - take 1 tablet by ORAL route every 6 hours As needed; 20 tablet. - Medication Reconciliation Form, Thank You Letter, Antibiotic Education, Prescription Opioid Use form. - Follow up: Private Physician; When: 10 days; Reason: Staple/Suture removal. - Problem is new. - Symptoms have improved. Signatures: Sophia Mo RN RN aj1 Clifton Santana MD MD rn Antunez, Elena, RN RN ea Corrections: (The following items were deleted from the chart) 23:49 23:31 09/03/2018 23:31 Discharged to Home. Impression: Laceration without foreign body ea of scalp; Superficial injury of head. Condition is Stable. Forms are Medication Reconciliation Form, Thank You Letter, Antibiotic Education, Prescription Opioid Use. Follow up: Private Physician; When: 10 days; Reason: Staple/Suture removal. Problem is new. Symptoms have improved. rn
--- NOTE | 2018-09-03 23:33 | ER ---
Nurse's Notes [facility] Name: Jose Antonio Olivarez Age: 58 yrs Sex: Male : 1960 Arrival Date: 09/03/2018 Time: 21:15 Bed 13 Private MD: Bhavin Araiza Diagnosis: Laceration without foreign body of scalp;Superficial injury of head Presentation: 09/03 21:16 Presenting complaint: Patient states: "me and the dogs outside were playing, I was aj1 going to get the ball before him and the dog knocked my feet out from under me and I hit the top of my head on the T-post" Laceration noted to top of head. Denies LOC, vomiting. Patient states he does not take any blood thinners. Care prior to arrival: None. Mechanism of Injury: Fall from standing position. Trauma event details: Injury occurred in the [facility]. 21:16 Acuity: VAUGHN 3 aj1 21:16 Method Of Arrival: Ambulatory aj 21:21 Transition of care: patient was not received from another setting of care. Onset of aj1 symptoms was September 03, 2018 at 20:30. Risk Assessment: Do you want to hurt yourself or someone else? Patient reports no desire to harm self or others. Initial Sepsis Screen: Does the patient meet any 2 criteria? No. Patient's initial sepsis screen is negative. Does the patient have a suspected source of infection? No. Patient's initial sepsis screen is negative. Trauma Activation: Not Applicable Physician: ED Physician; Name: ; Notified At: ; Arrived At: Physician: General Surgeon; Name: ; Notified At: ; Arrived At: Physician: Radiology; Name: ; Notified At: ; Arrived At: Physician: Respiratory; Name: ; Notified At: ; Arrived At: Physician: Lab; Name: ; Notified At: ; Arrived At: Historical: - Allergies: 21:23 No Known Allergies; aj1 - Home Meds: 21:23 Nexium Oral [Active]; blood pressure medicine [Active]; aj1 - PMHx: 21:23 Dao's Esophagitis; GERD; Hypertension; aj1 - Immunization history: Last tetanus immunization: - up to date. - Social history:: Smoking status: Patient/guardian denies using tobacco. - Ebola Screening: : Patient denies travel to an Ebola-affected area in the 21 days before illness onset. - Family history:: not pertinent. - Hospitalizations: : No recent hospitalization is reported. Screenin:16 Abuse screen: Denies threats or abuse. Denies injuries from another. Tuberculosis aj1 screening: No symptoms or risk factors identified. 21:16 Nutritional screening: No deficits noted. Fall Risk Fall in past 12 months (25 points). ea Primary Survey: 21:16 NO uncontrolled hemorrhage observed. A: The patient is alert. Airway: patent. aj1 Breathing/Chest: Respiratory pattern: regular, Respiratory effort: spontaneous, unlabored. Circulation: Skin color: pink. Disability Alert. Exposure/Environment: There is no evidence of uncontrolled external bleeding. 22:15 Reassessment Airway Airway Breathing/Chest Respiratory pattern Regular Respiratory ea effort Spontaneous Unlabored Breath sounds Clear. Secondary Survey: 22:00 HEENT: No deficits noted. Injury Description: Laceration sustained to right parietal ea area and left parietal area is clean, 0.5 to 2.5 cm long. Assessment: 21:16 General: Appears in no apparent distress. uncomfortable, Behavior is calm, cooperative, aj1 appropriate for age. Pain: Complains of pain in top of head, left parietal area and right parietal area Pain currently is 7 out of 10 on a pain scale. Neuro: Level of Consciousness is awake, alert, obeys commands. Neuro: Oriented to person, place, time, situation, Moves all extremities. Full function Gait is steady, Speech is normal, Denies weakness blurred vision numbness. Cardiovascular: Patient's skin is warm and dry. Respiratory: Airway is patent Respiratory effort is even, unlabored, Respiratory pattern is regular, symmetrical. 22:50 Reassessment: Patient and/or family updated on plan of care and expected duration. Pain ea level reassessed. Patient is alert, oriented x 3, equal unlabored respirations, skin warm/dry/pink. 23:45 Reassessment: Patient and/or family updated on plan of care and expected duration. Pain ea level reassessed. Patient is alert, oriented x 3, equal unlabored respirations, skin warm/dry/pink. Discharge instruction given to patient, verbalized the understanding of instruction. Vital Signs: 21:16 BP 155 / 96; Pulse 80; Resp 18; Temp 98.3(O); Pulse Ox 99% on R/A; Weight 77.11 kg (R); aj1 Height 5 ft. 7 in. (170.18 cm) (R); 22:15 BP 145 / 80; Pulse 80; Resp 18; Pulse Ox 99% on R/A; ea 23:46 BP 130 / 87; Pulse 77; Resp 18; Temp 98.7; Pulse Ox 99% ; ea 21:16 Body Mass Index 26.63 (77.11 kg, 170.18 cm) aj1 Albany Coma Score: 21:16 Eye Response: spontaneous(4). Verbal Response: oriented(5). Motor Response: obeys aj1 commands(6). Total: 15. 22:15 Eye Response: spontaneous(4). Verbal Response: oriented(5). Motor Response: obeys ea commands(6). Total: 15. 23:46 Eye Response: spontaneous(4). Verbal Response: oriented(5). Motor Response: obeys ea commands(6). Total: 15. Trauma Score (Adult): 21:16 Eye Response: spontaneous(1); Verbal Response: oriented(1); Motor Response: obeys aj1 commands(2); Systolic BP: > 89 mm Hg(4); Respiratory Rate: 10 to 29 per min(4); [place] Score: 15; Trauma Score: 12 ED Course: 21:15 Patient arrived in ED. es 21:15 Bhavin Araiza MD is Private Physician. es 21:16 Patient has correct armband on for positive identification. aj1 21:16 Patient maintains SpO2 saturation greater than 95% on room air. aj1 21:16 Thermoregulation: warm blanket given to patient. ea 21:19 Triage completed. aj1 21:23 Arm band placed on Patient placed in an exam room. aj1 21:25 Clifton Santana MD is Attending Physician. rn 21:30 Robyn Crowell RN is Primary Nurse. ea 23:30 No provider procedures requiring assistance completed. Assist provider with laceration ea repair on scalp and right parietal area and left parietal area that was between 2.6 to 7.5 cm using susie. Set up tray. Performed by Clifton Santana MD Dressed with 4X4s, Neosporin, Patient tolerated well. 23:48 Patient did not have IV access during this emergency room visit. ea Administered Medications: 21:46 Drug: [facility] 10 mg-325 mg 1 tabs Route: PO; ea 22:37 Follow up: Response: No adverse reaction; Pain is decreased ea Outcome: 23:31 Discharge ordered by . rn 23:48 Discharged to home ambulatory, with significant other. ea 23:48 Condition: improved 23:48 Discharge instructions given to patient, Instructed on discharge instructions, follow up and referral plans. medication usage, Demonstrated understanding of instructions, follow-up care, medications, Prescriptions given X 1. 23:49 Patient left the ED. ea Signatures: Sophia Mo RN RN aj1 Vita Carvajal Roman, MD MD rn Antunez, Elena, RN RN ea Corrections: (The following items were deleted from the chart) 23:49 23:48 No provider procedures requiring assistance completed. ea ea
[2018-09-04 00:48] VITALS: O2SAT 99
[2018-09-04 00:50] VITALS: BP 130/87; TEMP 98.7
== END 2018-09-03 23:49 | disposition home or self-care (01) ==
LOC: ER 21:11
PROC: 0JQ00ZZ Repair Scalp Subcutaneous Tissue and Fascia, Open Approach (ICD-10-PCS; principal; 2018-09-03)
DX: S01.01XA Laceration without foreign body of scalp, initial encounter (principal); W18.30XA Fall on same level, unspecified, initial encounter; K21.9 Gastro-esophageal reflux disease without esophagitis; I10 Essential (primary) hypertension
CPT/HCPCS: 99284

== ENCOUNTER 2018-09-13 19:44 | Emergency (ER) | payer BC ==
--- OUTSIDE RECORDS SUMMARY | 2018-09-13 19:46 | XMS REPORT | Clinical Summary ---
:1960 Author Organization [facility] Address [address] [place] [address] Care Team Providers Name Role Phone Bhavin [...] INFLUENZA VACCINE 11/30/2018 Results Not on fileafter 09/12/2017 Insurance Payer Benefit Plan / Group Subscriber ID Type Phone Address BCBS BCBS CHOICE PPO/FEDERAL EMPL PPO xxxxxxxxxxxx PPO Advance Directives Patient has advance care planning documents on file. For more information, please contact:Atilio Healy[address] [place] [address]
--- OUTSIDE RECORDS SUMMARY | 2018-09-13 19:46 | XMS REPORT ---
:1960 [facility] Address [address] [place] [address] Dr. Jarvis. [address] [place] [id number] Care Team Providers Name Role Phone DR CARLOS JIMENEZ Unavailable Unavailable Problems This patient has no known problems. Allergies, Adverse Reactions, Alerts This patient has no known allergies or adverse reactions. Medications This patient has no known medications. Encounters Start End Encounter Admission Attending Care Care Encounter Date/Time Date/Time Type Type Clinicians Facility Department ID 2018-06-16 2018-06-16 Outpatient C VASU JIMENEZ [facility] [id number] 09:30:00 13:00:00 CARLOS
--- NOTE | 2018-09-13 19:53 | ER ---
Nurse's Notes [facility] Name: Jose Antonio Olivarez Age: 58 yrs Sex: Male : 1960 Arrival Date: 09/13/2018 Time: 19:45 Bed Waiting Private MD: Bhavin Araiza Diagnosis: Encounter for removal of sutures-susie Presentation: 09/13 19:48 Presenting complaint: Patient states: I had six susie put in ten days ago and am here la1 to have them out. Transition of care: patient was not received from another setting of care. Onset of symptoms was September 13, 2018. Risk Assessment: Do you want to hurt yourself or someone else? Patient reports no desire to harm self or others. Initial Sepsis Screen: Does the patient meet any 2 criteria? No. Patient's initial sepsis screen is negative. Does the patient have a suspected source of infection? No. Patient's initial sepsis screen is negative. Care prior to arrival: None. 19:48 Method Of Arrival: Ambulatory la1 19:48 Acuity: VAUGHN 5 la1 Historical: - Allergies: 19:49 No Known Allergies; la1 - PMHx: 19:49 Dao's Esophagitis; GERD; Hypertension; la1 - Immunization history:: Adult Immunizations up to date. - Social history:: Smoking status: Patient/guardian denies using tobacco. - Ebola Screening: : No symptoms or risks identified at this time. Screenin:51 Abuse screen: Denies threats or abuse. Nutritional screening: No deficits noted. la1 Tuberculosis screening: No symptoms or risk factors identified. Fall Risk None identified. Assessment: 19:49 General: Appears in no apparent distress. Behavior is calm, cooperative. Pain: Denies la1 pain. Neuro: Level of Consciousness is awake, alert, obeys commands, Oriented to person, place, time, situation. Cardiovascular: Capillary refill < 3 seconds Patient's skin is warm and dry. Respiratory: Airway is patent Respiratory effort is even, unlabored, Respiratory pattern is regular, symmetrical. GI: No signs and/or symptoms were reported involving the gastrointestinal system. : No signs and/or symptoms were reported regarding the genitourinary system. Derm: wound well approximated without redness swelling or drainage. Vital Signs: 19:49 BP 127 / 92; Pulse 67; Resp 16; Temp 97.4; Pulse Ox 98% on R/A; Weight 77.11 kg; Height la1 5 ft. 7 in. (170.18 cm); 19:49 Body Mass Index 26.63 (77.11 kg, 170.18 cm) la1 ED Course: 19:45 Patient arrived in ED. am2 19:46 Bhavin Araiza MD is Private Physician. am2 19:48 Omaira Warren FNP-C is [facility]. kb 19:48 Jose Antonio Vann MD is Attending Physician. kb 19:49 Triage completed. la1 19:49 Arm band placed on right wrist. la1 19:51 Patient has correct armband on for positive identification. la1 19:51 No provider procedures requiring assistance completed. Patient did not have IV access la1 during this emergency room visit. Administered Medications: No medications were administered Outcome: 19:51 Discharged to home ambulatory. la1 19:51 Condition: stable 19:51 Discharge instructions given to patient, Instructed on discharge instructions, follow up and referral plans. medication usage, Demonstrated understanding of instructions, follow-up care, wound care. 19:53 Discharge ordered by . kb 19:59 Patient left the ED. la1 Signatures: Omaira Warren FNP-C FNP-Ckb Attema, Lee RN RN la1 Nena Mcpherson am2
--- NOTE | 2018-09-13 19:53 | EDPHYS ---
Physician Documentation [facility] Name: Jose Antonio Olivarez Age: 58 yrs Sex: Male : 1960 Arrival Date: 09/13/2018 Time: 19:45 Bed Waiting Private MD: Bhavin Araiza ED Physician Jose Antonio Vann HPI: 09/13 19:53 This 58 yrs old Male presents to ER via Ambulatory with complaints of Staple kb Removal. 19:53 The patient has susie on the scalp. Previous treatment: The patient was initially kb treated 10 day(s) ago, the care was rendered at [facility]. Sutures/susie progress: The patient has no c/o's. The wound is well-healing with no redness, swelling, discharge, or dehiscence reported. The patient has not experienced similar symptoms in the past. The patient has not recently seen a physician. Historical: - Allergies: 19:49 No Known Allergies; la1 - PMHx: 19:49 Dao's Esophagitis; GERD; Hypertension; la1 - Immunization history:: Adult Immunizations up to date. - Social history:: Smoking status: Patient/guardian denies using tobacco. - Ebola Screening: : No symptoms or risks identified at this time. ROS: 19:53 Constitutional: Negative for fever, chills, and weight loss, Cardiovascular: Negative kb for chest pain, palpitations, and edema, Respiratory: Negative for shortness of breath, cough, wheezing, and pleuritic chest pain, Abdomen/GI: Negative for abdominal pain, nausea, vomiting, diarrhea, and constipation, MS/Extremity: Negative for injury and deformity, Neuro: Negative for headache, weakness, numbness, tingling, and seizure. 19:53 Skin: Positive for of the scalp, susie in place. Exam: 19:53 Constitutional: This is a well developed, well nourished patient who is awake, alert, kb and in no acute distress. Head/Face: Normocephalic, atraumatic. Chest/axilla: Normal chest wall appearance and motion. Nontender with no deformity. No lesions are appreciated. Cardiovascular: Regular rate and rhythm with a normal S1 and S2. No gallops, murmurs, or rubs. Normal PMI, no JVD. No pulse deficits. Respiratory: Lungs have equal breath sounds bilaterally, clear to auscultation and percussion. No rales, rhonchi or wheezes noted. No increased work of breathing, no retractions or nasal flaring. Abdomen/GI: Soft, non-tender, with normal bowel sounds. No distension or tympany. No guarding or rebound. No evidence of tenderness throughout. MS/ Extremity: Pulses equal, no cyanosis. Neurovascular intact. Full, normal range of motion. Neuro: Awake and alert, GCS 15, oriented to person, place, time, and situation. Cranial nerves II-XII grossly intact. Motor strength 5/5 in all extremities. Sensory grossly intact. Cerebellar exam normal. Normal gait. 19:53 Skin: Wound recheck: Staple laceration closure: the wound is healing well, the edges are well approximated, no evidence of dehiscence, no drainage, no erythema, no swelling. Vital Signs: 19:49 BP 127 / 92; Pulse 67; Resp 16; Temp 97.4; Pulse Ox 98% on R/A; Weight 77.11 kg; Height la1 5 ft. 7 in. (170.18 cm); 19:49 Body Mass Index 26.63 (77.11 kg, 170.18 cm) la1 Procedures: 19:54 Suture/Staple removal: Removed 6 susie, from scalp, site appears well healed, Patient kb tolerated well. MDM: 19:50 Patient medically screened. kb 19:54 Data reviewed: vital signs, nurses notes. Data interpreted: Pulse oximetry: on room air kb is 98 %. Interpretation: normal. Counseling: I had a detailed discussion with the patient and/or guardian regarding: the historical points, exam findings, and any diagnostic results supporting the discharge/admit diagnosis, the need for outpatient follow up, a family practitioner, to return to the emergency department if symptoms worsen or persist or if there are any questions or concerns that arise at home. Administered Medications: No medications were administered Disposition: 09/14 07:53 Co-signature as Attending Physician, Jose Antonio Vann MD I agree with the assessment and wa plan of care. Disposition: 09/13/18 19:53 Discharged to Home. Impression: Encounter for removal of sutures - susie. - Condition is Stable. - Discharge Instructions: Suture Removal, Care After. - Medication Reconciliation Form, Thank You Letter, Antibiotic Education, Prescription Opioid Use form. - Follow up: Emergency Department; When: As needed; Reason: Worsening of condition. Follow up: Private Physician; When: 2 - 3 days; Reason: Recheck today's complaints, Continuance of care, Re-evaluation by your physician. Signatures: Omaira Warren FNP-C FNP-Shemar Monge RN RN la1 Jose Antonio Vann MD MD wa Corrections: (The following items were deleted from the chart) 09/13 19:58 19:53 09/13/2018 19:53 Discharged to Home. Impression: Encounter for removal of sutures la1 - susie. Condition is Stable. Forms are Medication Reconciliation Form, Thank You Letter, Antibiotic Education, Prescription Opioid Use. Follow up: Emergency Department; When: As needed; Reason: Worsening of condition. Follow up: Private Physician; When: 2 - 3 days; Reason: Recheck today's complaints, Continuance of care, Re-evaluation by your physician. kb
[2018-09-14 03:02] VITALS: BP 127/92; TEMP 97.4; O2SAT 98
== END 2018-09-13 19:59 | disposition home or self-care (01) ==
LOC: ER 19:44
DX: Z48.02 Encounter for removal of sutures (principal); I10 Essential (primary) hypertension
CPT/HCPCS: 99281

== ENCOUNTER 2018-09-27 03:18 | Emergency (ER) | payer BC ==
--- OUTSIDE RECORDS SUMMARY | 2018-09-27 03:19 | XMS REPORT | Clinical Summary ---
:1960 Author Organization [facility] Address [address] [place] [address] Care Team Providers Name Role Phone Bhavin [...] INFLUENZA VACCINE 11/30/2018 Results Not on fileafter 09/26/2017 Advance Directives Patient has advance care planning documents on file. For more information, please contact:Atilio Healy[address] [place] [address]
--- OUTSIDE RECORDS SUMMARY | 2018-09-27 03:19 | XMS REPORT ---
:1960 [facility] Address [address] [place] [address] Dr. Jarvis[address] [place] [id number] Care Team Providers Name Role Phone DR CARLOS JIMENEZ Unavailable Unavailable Problems This patient has no known problems. Allergies, Adverse Reactions, Alerts This patient has no known allergies or adverse reactions. Medications This patient has no known medications. Encounters Start End Encounter Admission Attending Care Care Encounter Date/Time Date/Time Type Type Clinicians Facility Department ID 2018-06-16 2018-06-16 Outpatient C VASU JIMENEZ [facility] [place] [id number] 09:30:00 13:00:00 CARLOS
[2018-09-27] MEDS ORDERED: IBUPROFEN 400 MG TAB ONE (04:07)
[2018-09-27] MEDS ORDERED: IBUPROFEN 200 MG TAB PO ONE (04:07)
[2018-09-27 05:00] LABS: Urine Bacteria <20 /HPF (NONE SEEN); Urine Culture Reflex Order NOT NEEDED; Urine RBC <5 /HPF (NONE SEEN)
--- NOTE | 2018-09-27 05:00 | EDPHYS ---
Physician Documentation [facility] Name: Jose Antonio Olivarez Age: 58 yrs Sex: Male : 1960 Arrival Date: 09/27/2018 Time: 03:21 Bed 6 Private MD: ED Physician Cornel Cotton HPI: 09/27 04:06 This 58 yrs old Male presents to ER via Ambulatory with complaints of Fever, gs chills. 04:06 Onset: The symptoms/episode began/occurred acutely, today. Modifying factors: there are gs no obvious modifying factors, Interventions used to treat fever include none. Associated signs and symptoms: Pertinent positives: chills. Severity of symptoms: At their worst the symptoms were moderate in the emergency department the symptoms are unchanged. The patient has experienced similar episodes in the past, a few times. Historical: - Allergies: 03:36 No Known Allergies; lp1 - Home Meds: 03:36 Nexium Oral [Active]; blood pressure medicine [Active]; lp1 - PMHx: 03:36 Dao's Esophagitis; GERD; Hypertension; lp1 - PSHx: 03:36 Knee surgery; carpel tunnel; lp1 - Immunization history:: Adult Immunizations up to date. - Social history:: Smoking status: Patient/guardian denies using tobacco. - Ebola Screening: : No symptoms or risks identified at this time. ROS: 04:06 Constitutional: Positive for body aches, fever. gs 04:06 Cardiovascular: Negative for chest pain. 04:06 Respiratory: Negative for cough. 04:06 Abdomen/GI: Negative for nausea and vomiting. 04:06 Skin: Negative for rash. 04:06 All other systems are negative. Exam: 04:06 Head/Face: Normocephalic, atraumatic. Eyes: Pupils equal round and reactive to light, gs extra-ocular motions intact. Lids and lashes normal. Conjunctiva and sclera are non-icteric and not injected. Cornea within normal limits. Periorbital areas with no swelling, redness, or edema. ENT: Nares patent. No nasal discharge, no septal abnormalities noted. Tympanic membranes are normal and external auditory canals are clear. Oropharynx with no redness, swelling, or masses, exudates, or evidence of obstruction, uvula midline. Mucous membranes moist. Neck: Trachea midline, no thyromegaly or masses palpated, and no cervical lymphadenopathy. Supple, full range of motion without nuchal rigidity, or vertebral point tenderness. No Meningismus. Chest/axilla: Normal chest wall appearance and motion. Nontender with no deformity. No lesions are appreciated. Cardiovascular: Regular rate and rhythm with a normal S1 and S2. No gallops, murmurs, or rubs. Normal PMI, no JVD. No pulse deficits. Respiratory: Lungs have equal breath sounds bilaterally, clear to auscultation and percussion. No rales, rhonchi or wheezes noted. No increased work of breathing, no retractions or nasal flaring. Abdomen/GI: Soft, non-tender, with normal bowel sounds. No distension or tympany. No guarding or rebound. No evidence of tenderness throughout. Back: No spinal tenderness. No costovertebral tenderness. Full range of motion. Skin: Warm, dry with normal turgor. Normal color with no rashes, no lesions, and no evidence of cellulitis. MS/ Extremity: Pulses equal, no cyanosis. Neurovascular intact. Full, normal range of motion. Neuro: Awake and alert, GCS 15, oriented to person, place, time, and situation. Cranial nerves II-XII grossly intact. Motor strength 5/5 in all extremities. Sensory grossly intact. Cerebellar exam normal. Normal gait. 04:06 Constitutional: The patient appears alert, awake. Vital Signs: 03:34 BP 146 / 89; Pulse 93; Resp 18; Temp 100.2(O); Pulse Ox 100% on R/A; Weight 79.38 kg; lp1 Height 5 ft. 7 in. (170.18 cm); Pain 7/10; 04:51 Temp 100(O); lp1 05:00 BP 128 / 83; Pulse 93; Resp 18; Pulse Ox 100% on R/A; lp1 03:34 Body Mass Index 27.41 (79.38 kg, 170.18 cm) lp1 MDM: 03:49 Patient medically screened. gs 04:06 Differential diagnosis: viral Infection, UTI. Data reviewed: vital signs, nurses notes, gs lab test result(s). Counseling: I had a detailed discussion with the patient and/or guardian regarding: the historical points, exam findings, and any diagnostic results supporting the discharge/admit diagnosis, lab results. Response to treatment: the patient's symptoms have markedly improved after treatment, and as a result, I will discharge patient. 09/27 03:50 Order name: Flu; Complete Time: 04:53 09/27 03:50 Order name: Urine Microscopic Only 09/27 03:50 Order name: Urine Dipstick-Ancillary (obtain specimen); Complete Time: 04:08 09/27 04:08 Order name: Urine Dipstick--Ancillary (enter results) mw2 Administered Medications: 03:59 Drug: Motrin 600 mg Route: PO; lp1 05:00 Follow up: Response: No adverse reaction lp1 04:50 Drug: Tylenol 1000 mg Route: PO; lp1 05:16 Follow up: Response: Medication administered at discharge. lp1 Disposition: 09/27/18 04:59 Discharged to Home. Impression: Influenza due to other identified influenza virus. - Condition is Stable. - Discharge Instructions: Influenza, Adult. - Prescriptions for Tamiflu 75 mg Oral Capsule - take 1 tablet by ORAL route every 12 hours for 5 days; 10 tablet. - Medication Reconciliation Form, Thank You Letter, Antibiotic Education, Prescription Opioid Use form. - Work release form (09/27/18 05:17). lp1 - Follow up: Private Physician; When: 2 - 3 days; Reason: Re-evaluation by your physician. Signatures: Dispatcher [employer] Adele Del Castillo RN RN lp1 Cornel Cotton MD MD Corrections: (The following items were deleted from the chart) 05:17 04:59 09/27/2018 04:59 Discharged to Home. Impression: Influenza due to other lp1 identified influenza virus. Condition is Stable. Forms are Medication Reconciliation Form, Thank You Letter, Antibiotic Education, Prescription Opioid Use. Follow up: Private Physician; When: 2 - 3 days; Reason: Re-evaluation by your physician.
--- NOTE | 2018-09-27 05:00 | ER ---
Nurse's Notes [facility] Name: Jose Antonio Olivarez Age: 58 yrs Sex: Male : 1960 Arrival Date: 09/27/2018 Time: 03:21 Bed 6 Private MD: Diagnosis: Influenza due to other identified influenza virus Presentation: 09/27 03:33 Presenting complaint: Patient states: Woke up about an hour ago with chills, headache; lp1 States having headache since yesterday; Temp of 102 at home; Denies any other symptoms. Transition of care: patient was not received from another setting of care. Onset of symptoms was September 27, 2018 at 02:00. Risk Assessment: Do you want to hurt yourself or someone else? Patient reports no desire to harm self or others. Initial Sepsis Screen: Does the patient meet any 2 criteria? No. Patient's initial sepsis screen is negative. Does the patient have a suspected source of infection? No. Patient's initial sepsis screen is negative. Care prior to arrival: None. 03:33 Method Of Arrival: Ambulatory lp1 03:33 Acuity: VAUGHN 3 lp1 Historical: - Allergies: 03:36 No Known Allergies; lp1 - Home Meds: 03:36 Nexium Oral [Active]; blood pressure medicine [Active]; lp1 - PMHx: 03:36 Dao's Esophagitis; GERD; Hypertension; lp1 - PSHx: 03:36 Knee surgery; carpel tunnel; lp1 - Immunization history:: Adult Immunizations up to date. - Social history:: Smoking status: Patient/guardian denies using tobacco. - Ebola Screening: : No symptoms or risks identified at this time. Screenin:37 Abuse screen: Denies threats or abuse. Denies injuries from another. Nutritional lp1 screening: No deficits noted. Tuberculosis screening: No symptoms or risk factors identified. Fall Risk None identified. Assessment: 03:36 General: Appears in no apparent distress. Behavior is calm, cooperative, appropriate lp1 for age. Pain: Complains of pain in head Pain currently is 7 out of 10 on a pain scale. Quality of pain is described as aching. Neuro: Level of Consciousness is awake, alert, obeys commands, Oriented to person, place, time, situation, Reports headache occipital area. Cardiovascular: Patient's skin is warm and dry. Respiratory: Respiratory effort is even, unlabored, Respiratory pattern is regular, Breath sounds are clear bilaterally. GI: No deficits noted. : Reports urinary frequency. EENT: Reports nasal congestion. Derm: Skin is pink, warm \T\ dry. Musculoskeletal: No deficits noted. 04:45 Reassessment: Patient appears in no apparent distress at this time. Patient states lp1 continued headache at this time; Provider notified. Vital Signs: 03:34 BP 146 / 89; Pulse 93; Resp 18; Temp 100.2(O); Pulse Ox 100% on R/A; Weight 79.38 kg; lp1 Height 5 ft. 7 in. (170.18 cm); Pain 7/10; 04:51 Temp 100(O); lp1 05:00 BP 128 / 83; Pulse 93; Resp 18; Pulse Ox 100% on R/A; lp1 03:34 Body Mass Index 27.41 (79.38 kg, 170.18 cm) lp1 ED Course: 03:21 Patient arrived in ED. am2 03:32 Adele Montiel, RN is Primary Nurse. lp1 03:34 Triage completed. lp1 03:35 Arm band placed on left wrist. lp1 03:37 Patient has correct armband on for positive identification. Placed in gown. Pulse ox lp1 on. NIBP on. 03:45 Cornel Cotton MD is Attending Physician. gs 03:58 Flu Sent. ar5 04:08 Urine Microscopic Only Sent. ar5 05:02 No provider procedures requiring assistance completed. Patient did not have IV access lp1 during this emergency room visit. Administered Medications: 03:59 Drug: Motrin 600 mg Route: PO; lp1 05:00 Follow up: Response: No adverse reaction lp1 04:50 Drug: Tylenol 1000 mg Route: PO; lp1 05:16 Follow up: Response: Medication administered at discharge. lp1 Outcome: 04:59 Discharge ordered by . gs 05:15 Discharged to home ambulatory, with significant other. lp1 05:15 Condition: good 05:15 Discharge instructions given to patient, Instructed on discharge instructions, follow up and referral plans. medication usage, Demonstrated understanding of instructions, follow-up care, medications, Prescriptions given X 1. 05:17 Patient left the ED. lp1 Signatures: Adele Montiel RN RN lp1 Nena Mcpherson am2 Cornel Cotton MD MD Angelique Amin ar5
[2018-09-27 05:01] LABS: Urine Blood NEGATIVE (NEG); Urine Glucose NEGATIVE (NEG); Urine Protein TRACE (NEG)
[2018-09-27] MEDS ORDERED: ACETAMINOPHEN 500 MG TAB ONE (05:04)
[2018-09-27 10:22] VITALS: O2SAT 100
[2018-09-27 10:23] VITALS: TEMP 100
[2018-09-27 10:24] VITALS: BP 128/83
== END 2018-09-27 05:17 | disposition home or self-care (01) ==
LOC: ER 03:18
DX: J10.1 Influenza due to other identified influenza virus with other respiratory manifestations (principal); K21.9 Gastro-esophageal reflux disease without esophagitis; I10 Essential (primary) hypertension
CPT/HCPCS: 81003; 81015; 87804; 99284

== ENCOUNTER 2019-02-14 13:34 | Emergency (ER) | payer BC ==
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
[2019-02-14] MEDS ORDERED: IBUPROFEN 200 MG TAB PO ONE (14:45)
[2019-02-14] MEDS ORDERED: CYCLOBENZAPRINE 10 MG TAB ONE (14:45)
[2019-02-14 14:58] VITALS: BP 148/81; TEMP 98.8; O2SAT 100
== END 2019-02-14 14:49 | disposition home or self-care (01) ==
LOC: ER 13:34
DX: R51 Headache (principal); M54.9 Dorsalgia, unspecified; M79.18 Myalgia, other site; K21.9 Gastro-esophageal reflux disease without esophagitis; I10 Essential (primary) hypertension; V53.5XXA Driver of pick-up truck or van injured in collision with car, pick-up truck or van in traffic accident, initial encounter; Y93.89 Activity, other specified; Y92.410 Unspecified street and highway as the place of occurrence of the external cause
CPT/HCPCS: 99284

== ENCOUNTER 2024-06-29 21:00 | Emergency (ER) | payer BC ==
--- OUTSIDE RECORDS SUMMARY | 2024-06-29 21:03 | XMS REPORT | Clinical Summary ---
Author Name Unknown Organization [facility] Address [address] [place] [address] Care Team Providers Care Director Global Medical Affairs Name Role Phone Miladys Brannon MD Primary Care Provider [phone] Marcie Abraham Unavailable [phone] Guru Du MD Primary Care Provider [phone] Guru Du MD Unavailable [phone] Allergies No known active allergies Medications losartan (COZAAR) 100 mg tablet TAKE 1 TABLET BY MOUTH ONCE DAILY FOR 90 DAYS 9 Active omeprazole (PriLOSEC) 40 MG capsule TAKE 1 CAPSULE BY MOUTH TWICE DAILY 4 Active tamsulosin (FLOMAX) 0.4 mg 24 hr capsule TAKE 1 CAPSULE BY MOUTH ONCE DAILY Active sertraline (ZOLOFT) 100 mg tablet TAKE 1 & 1/2 (ONE & ONE-HALF) TABLETS BY MOUTH ONCE DAILY 3 Active UNABLE TO FIND Long Men 50 plus one tablet daily oral Active omega-3 acid ethyl esters (LOVAZA) 1 g capsule Take 1 capsule (1 g) by mouth daily. 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; Squamous cell carcinoma of holiness 11/23/2023 Travel 11/08/2023 Orders Only [facility] [address] [facility], [address] [place] [address] Jamila Lomeli MD Squamous cell carcinoma of holiness (Primary Dx) 11/01/2023 Telephone MD [facility] [address] [place] [address] Elo Gimenez RN 11/01/2023 Orders Only [facility] [address] [facility], 2nd [place] [address] Guru Du MD Personal history of other malignant neoplasm of skin (Primary Dx) 11/01/2023 Orders Only [facility] [address] [facility], 2nd [place] [address] Guru Du MD Squamous cell carcinoma in situ, 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 (Primary Dx) 10/26/2023 9:15 AM CDT Office Visit MD [facility] [address] [place] [address] Miladys Brannon MD Doan, Hung Quoc, MD Neoplasm of uncertain behavior of skin (Primary Dx); Actinic keratosis; Lentigo; Senile angioma; Melanocytic nevus of trunk 10/26/2023 9:00 AM CDT NPR MDA PATIENT ACCESS Miladys Brannon MD 10/26/2023 Travel after 06/30/2023 Social History Tobacco Use Types Packs/Day Years Used Date Smoking Tobacco: Former Cigarettes Q uit: 03/1982 Smokeless Tobacco: Never Tobacco Cessation:Counseling Given: Not Answered Sex and Gender Information Value Date Recorded Sex Assigned at Not on file Legal Sex Male 10:37 AM CDT Gender Identity Not on file Sexual Orientation Not on file Travel History Travel Start Travel End [place] 11/14/2023 11/19/2023 Obstetrics History Last Filed Vital Signs Vital Sign Reading Time Taken Comments Blood Pressure 112/72 11/23/2023 12:58 PM CDT Pulse 58 11/23/2023 12:58 PM CDT Temperature 36.5 C (97.7 F) 11/23/2023 12:58 PM C DT Respiratory Rate 16 11/23/2023 12:58 PM CDT Oxygen Saturation 96% 11/23/2023 12:58 PM CDT Inhaled Oxygen Concentration - - Weight 79.9 kg (176 lb 2.4 oz) 11/23/2023 12:58 PM CDT Height 162.2 cm (5' 3.86") 10/26/2023 9:10 AM CD T Body Mass Index 30.37 10/26/2023 9:10 AM CDT Plan of Treatment Health Maintenance Due Date Last Done Comments Pneumococcal Vaccine: 50+ Ye ars (1 of - PCV) 2011 COVID-19 Vaccine (2023-2 5 season) 2024 Influenza Vaccine (#1) 2024 Pneumococcal Vaccine Aged Out No long er eligible based on patient's age to complete this topic Procedures Procedure Name Priority Date/Time Associated Diagnosis Comments PATHOLOGY BIOPSY INTERPRETATION Routine 10/26/2023 9:49 AM CDT Neoplasm of uncertain behavior of skin after 06/30/2023 Results * Pathology Biopsy Interpretation (10/26/2023 9:49 AM CDT) Submitted Clinical History A: BCC versus AK 10/28/2023 1:58 PM CDT [facility] Diagnosis A: Skin, right holiness, shave: 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 See comment. 10/28/2023 1:58 PM CDT [facility] Comment Additional deeper tissue sections have been cut and examined. A periodic acid-Cj stain fails to reveal unequivocal fungal organisms within viable tissue or basement membrane thickening. 10/28/2023 1:58 PM CDT [facility] Gross Description A: Skin, right holiness: A mottled busch-white skin shave measuring 0.8 x 0.7 x 0.1 cm. The specimen is inked, trisected, entirely submitted in A1. GM 10/28/2023 1:58 PM CDT [facility] Disclaimer "Some tests reported here may have been developed and performance characteristics determined by [facility]. These tests have not been specifically cleared or approved by the U.S. Food and Drug Administration. If applicable, controls were reviewed and showed appropriate reactivity." 10/28/2023 1:58 PM CDT [facility] Tissue (Skin) 10/26/2023 9:4 9 AM CDT 10/27/2023 7:47 AM CDT us Guru Du MD LAB PATHOLOGY ORDERABLES Final Result [facility] [address] [place] [address], after 06/30/[address] [place] [address] [place] [address] [place] [id number] [facility] [place] PPO POS Care Teams Director Global Medical Affairs Relationship Specialty [place] [address] [place] [id number] [email or web address] PCP - General Dermatology 10/11/23 10/25/23 Marcie Abraham [address] [place] [id number] PCP - External Primary Care Provider Nurse Practitioner 10/26/23 Guru Du MD [address] [place] [phone] [email or web address] PCP - General Dermatology 10/26/23 10/26/23 Guru Du MD [address] [place] [address] [email or web address] Physician Dermatology 10/26/23
[2024-06-29] MEDS ORDERED: PROMETHAZINE 25 MG TABLET ONE (21:34)
[2024-06-29] MEDS ORDERED: IBUPROFEN 400 MG TAB ONE (21:35)
[2024-06-29] MEDS ORDERED: HYDROCODONE/APAP 5/325 MG TAB ONE (21:35)
[2024-06-29] MEDS ORDERED: methocarbamoL 750 MG TAB ONE (21:35)
[2024-06-29] MEDS ORDERED: TDAP (DIPHTH,PERTUSS(ACELL),TET VAC) 0.5 ML VIAL IMVAC ONE (21:45)
[2024-06-29] MEDS ORDERED: LIDOCAINE 1% 20 ML MDV ONE (21:45)
--- NOTE | 2024-06-29 21:47 | RAD REPORT ---
EXAMINATION: Shoulder Right 2+ Views CLINICAL INDICATION: Male, 64 years old. right pain shoulder RIGHT COMPARISON: No prior exam. FINDINGS: No acute fracture. No malalignment/dislocation. Mild right AC joint degenerative changes. Other: n/a IMPRESSION: No acute osseous abnormality.
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
[2024-06-29] MEDS ORDERED: ATROPINE SULFATE 1 MG/ML INJ ONE (22:24)
[2024-06-29] MEDS ORDERED: NA CHLORIDE 0.9% 1,000 ML ONE (22:29)
--- NOTE | 2024-06-29 22:37 | RAD REPORT ---
EXAM: Chest Single View HISTORY: 64 years Male CHEST PAIN COMPARISON: None. FINDINGS: LUNGS/PLEURA: The lungs are clear. No pleural effusions or pneumothorax. No pulmonary edema. CARDIAC/MEDIASTINUM: The cardiac silhouette is within normal limits. UPPER ABDOMEN: No significant abnormality. BONES: No acute abnormality. LINES/TUBES/OTHER: N/A IMPRESSION: No evidence of acute cardiopulmonary disease.
[2024-06-29] MEDS ORDERED: ONDANSETRON 4 MG/2 ML VIAL ONE (22:42)
[2024-06-29 22:55] LABS: Absolute Basophils 0.1 K/uL (0-0.5); Absolute Eosinophils 0.2 K/uL (0-0.5); Absolute Monocytes 1.3 K/uL (0.1-1.3); Absolute Neutrophil 10.2 K/uL (1.8-8.0); Basophils % 0.6 % (0-1.3); Eosinophils % 1.5 % (0-4.4); Hematocrit 41.6 % (39.6-49.0); Hemoglobin 14.4 g/dL (13.6-17.9); Lymphocytes % 25.4 % (15.3-44.8); MCH 32.1 pg (27.0-35.0); MCHC 34.6 g/dL (32.0-36.0); MCV 92.7 fL (80-100); MPV 7.7 fL (7.6-11.3); Monocytes % 8.4 % (3.3-12.3); Neutrophils % 64.1 % (41.7-73.7); Nucleated Red Blood Cells % 0.1 % (0-0); Platelets 264 thou/uL (152-406); RBC Red Blood Cell Count 4.48 M/uL (4.33-5.43); Red Cell Distribution Width 13.2 % (12.1-15.2)
[2024-06-29 23:03] LABS: PT Prothrombin Time 10.4 SECONDS (10.0-13.0); Protime INR 0.91
[2024-06-29 23:17] LABS: Albumin 3.6 g/dL (3.4-5.0); Albumin/Globulin Ratio 1.2 (1.1-1.8); Anion Gap 9.8 mEq/L (5.0-15.0); Bilirubin Direct 0.2 mg/dL (0-0.2); Bilirubin Indirect, Calculated 0.6 mg/dL (0.2-0.8); Bilirubin Total 0.8 mg/dL (0.2-1.0); Globulin 3.1 g/dL (2.3-3.5); Magnesium 2.4 mg/dL (1.6-2.4); Potassium 3.8 mEq/L (3.5-5.1); Protein, Total 6.7 g/dL (6.4-8.2); Troponin High Sensitivity 14.1 pg/mL (<58.9)
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
--- NOTE | 2024-07-02 12:09 | EKG ---
Test Date: 2024-06-29 Test Time: 22:38:16 Heating And Ventilating Tender: PEDRO MEASUREMENT RESULTS: Intervals: Rate: 74 DC: 134 QRSD: 102 QT: 382 QTc: 424 [place]: P: 59 DC: 134 QRS: 64 T: 39 INTERPRETIVE STATEMENTS: Normal sinus rhythm Normal ECG Compared to ECG 06/29/2024 22:22:01 No significant changes Electronically Signed On 07-02-24 12:05:03 INSULATION NOZZLEMAN by Gordon Mccullough
--- NOTE | 2024-07-02 12:10 | EKG ---
Test Date: 2024-06-29 Test Time: 22:22:01 Surface Supply Breathing Apparatus: PEDRO MEASUREMENT RESULTS: Intervals: Rate: 40 [place]: QRSD: 98 QT: 420 QTc: 342 [place]: P: [place]: QRS: 64 T: 51 INTERPRETIVE STATEMENTS: Junctional bradycardia Abnormal ECG Compared to ECG 02/23/2018 08:29:57 Sinus bradycardia no longer present Electronically Signed On 07-02-24 12:05:14 AREA LOSS PREVENTION MANAGER by Gordon Mccullough
== END 2024-06-30 00:46 | disposition home or self-care (01) ==
LOC: ER 21:00
DX: S06.0X0A Concussion without loss of consciousness, initial encounter (principal); S01.111A Laceration without foreign body of right eyelid and periocular area, initial encounter; S43.401A Unspecified sprain of right shoulder joint, initial encounter; R55 Syncope and collapse; R00.1 Bradycardia, unspecified
CPT/HCPCS: 96361; 93005 ×2; 85025; 80048; 36415; 83735; 85610; 80076; 84484; 83880; 70450; 72125; 70486; 76377; 71045; 73030; 96375; 96372; 96374; 99285; 12011; Q0169; J2003; J0461; J2405; J7030